=== PATIENT | male | born 1955 | race Caucasian/White ===

== ENCOUNTER 2018-08-20 17:34 | Inpatient (IN) | payer MEDICARE, MEDICAID ==
[~2018-08-20] VITALS: Ht 188 cm; Wt 122.2 kg
--- NOTE | 2018-08-20 17:52 | NUR ---
THIS IS A 62 YEAR OLD MALE WHO WAS BIB BY AMBULANCE DUE TO CP AND SOB. PT STATES PAIN IS 6/10. SATS ON RA 96%, OXYGEN ON AT 2LNC. PT HAS HX OF DM2. PLACED ON APPLICATION SUPPORT CONSULTANT, TACY AT 99-105, SP02 91% at 3LNC, CYCLE VS. MD AT BS
[2018-08-20] MEDS ORDERED: SODIUM CHLORIDE FLUSH 10ML SYR IVF ONE (18:00)
[2018-08-20] MEDS ORDERED: MORPHINE SULFATE 4 MG/ML, 1ML IVPush PRN (18:00)
[2018-08-20] MEDS ORDERED: DM med BC (18:10)
--- NOTE | 2018-08-20 18:11 | NUR ---
Report from Blade RN. Pt resting in bed, frequent productive cough. Pt c/o 07/23 R rib pain. Pt states "Oh I forgot I've had diarrhea for the last 3-4 days too." Pt placed in special contact isolation and Dr. Sinclair notified.
[2018-08-20] MEDS ORDERED: MORPHINE SULFATE 4 MG/ML, 1ML ONE (18:19)
[2018-08-20] MEDS: PIPERACILLIN/TAZO/PMX 3.375GM 50 ML IV ONE ×2 (18:20→19:20)
--- NOTE | 2018-08-20 18:25 | NUR ---
Pt medicated per MAR, provided urinal to void per request. Pt denies other needs.
[2018-08-20 18:30] LABS: MEAN CORPUSCULAR HEMOGLOBIN 31.3 pg (27.5-34.5); MEAN CORPUSCULAR HGB CONC 33.2 g/dL (33.2-36.2); MEAN CORPUSCULAR VOLUME 94.2 fL (81-97); MEAN PLATELET VOLUME 9.1 fL (7.4-10.4); PLATELET COUNT 196 x10^3/uL (130-400); RED BLOOD COUNT 4.01 x10^6/uL (4.38-5.82); RED CELL DISTRIBUTION WIDTH 14.7 % (9.4-14.8)
[2018-08-20] MEDS ORDERED: SODIUM CHLORIDE 0.9% 1,000ML IVBOLUS ONE (18:30)
[2018-08-20 18:36] LABS: ALBUMIN 2.7 g/dL (3.4-5.0); ANION GAP 14 mmol/L (5-15); CHLORIDE 98 mmol/L (98-107); CREATININE 1.91 mg/dL (0.7-1.3)
[2018-08-20 18:41] LABS: TROPONIN I < 0.015 ng/mL (0.000-0.045)
--- NOTE | 2018-08-20 18:42 | NUR ---
Pt states pain resolved after medications, denies other needs.
[2018-08-20] MEDS ORDERED: PIPERACILLIN/TAZO/PMX 3.375GM 50 ML ONE (19:10)
[2018-08-20 19:19] LABS: MD YES
[2018-08-20 19:22] LABS: <PLATELET ESTIMATE> ADEQUATE; <RBC MORPHOLOGY> NORMAL; BAND#(MANUAL) 0.16 x10^3/uL; BANDS%(MANUAL) 1 % (0-7); LYMPH#(MANUAL) 0.78 x10^3/uL (1-3.4); LYMPHS% (MANUAL) 5 % (22-44); METAMYELOCYTES# (MANUAL) 0.16 x10^3/uL (0-0); METAMYELOCYTES% (MANUAL) 1 % (0-1); MONOS% (MANUAL) 9 % (2-9); MYELOCYTES# (MANUAL) 0.31 x10^3/uL (0-0); MYELOCYTES% (MANUAL) 2 % (0-0); SEG#(MANUAL) 12.79 x10^3/uL (1.8-6.8); SEGS% (MANUAL) 82 % (42-75); TOXIC GRAN 1+
[2018-08-20 19:23] LABS: LARGE PLATELETS 1+
--- NOTE | 2018-08-20 19:29 | NUR ---
REPORT FROM KALEE DU. ABX RUNNING. PT GIVEN DINNER TRAY. CALL LIGHT IN REACH
[2018-08-20] MEDS ORDERED: hydrALAzine 20 MG/ML, 1ML IVPush PRN (21:30)
[2018-08-20] MEDS ORDERED: ENOXAPARIN 40 MG/0.4 ML SQ SCH (21:30)
[2018-08-20] MEDS ORDERED: ACETAMINOPHEN 325 MG TABLET PO PRN (21:30)
[2018-08-20] MEDS ORDERED: PHARMACY MAY ADJ FOR RENAL FX MC PRN (21:30)
[2018-08-20] MEDS ORDERED: DOCUSATE 100 MG CAPSULE PO PRN (21:30)
[2018-08-20] MEDS ORDERED: LIDODERM 5% PATCH TD PRN (21:30)
[2018-08-20] MEDS ORDERED: TEMAZEPAM 15 MG CAPSULE PO PRN (21:30)
[2018-08-20] MEDS ORDERED: ONDANSETRON ODT 4 MG PO PRN (21:30)
[2018-08-20] MEDS: SODIUM CHLORIDE 0.9% 1,000 ML IV SCH (22:38)
[2018-08-20 23:03] VITALS: BP 95/57
[2018-08-21 01:08] LABS: TROPONIN I < 0.015 ng/mL (0.000-0.045)
[2018-08-21] MEDS: PIPERACILLIN/TAZO/PMX 3.375GM 50 ML IV SCH ×4 (01:13→19:28)
[2018-08-21 01:54] VITALS: BP 89/54
[2018-08-21] MEDS: GUAIFENESIN/DM 200-20MG, 10ML UDC PO PRN ×2 (02:07→11:12)
[2018-08-21 02:10] VITALS: BP 96/60
[2018-08-21 05:50] LABS: ANION GAP 12 mmol/L (5-15); CALCIUM 8.3 mg/dL (8.5-10.1); CHLORIDE 100 mmol/L (98-107)
[2018-08-21] MEDS: SODIUM CHLORIDE 0.9% 1,000 ML IV SCH ×4 (05:53→19:28)
[2018-08-21 05:55] LABS: CREATININE 1.88 mg/dL (0.7-1.3); TROPONIN I < 0.015 ng/mL (0.000-0.045)
[2018-08-21 06:16] LABS: MEAN CORPUSCULAR HEMOGLOBIN 30.5 pg (27.5-34.5); MEAN CORPUSCULAR HGB CONC 32.7 g/dL (33.2-36.2); MEAN CORPUSCULAR VOLUME 93.1 fL (81-97); MEAN PLATELET VOLUME 8.9 fL (7.4-10.4); PLATELET COUNT 152 x10^3/uL (130-400); RED BLOOD COUNT 3.66 x10^6/uL (4.38-5.82); RED CELL DISTRIBUTION WIDTH 14.1 % (9.4-14.8)
[2018-08-21 06:53] LABS: MD YES
[2018-08-21 06:54] LABS: <PLATELET ESTIMATE> ADEQUATE; <RBC MORPHOLOGY> NORMAL; BAND#(MANUAL) 0.47 x10^3/uL; BANDS%(MANUAL) 4 % (0-7); LYMPH#(MANUAL) 0.59 x10^3/uL (1-3.4); LYMPHS% (MANUAL) 5 % (22-44); MONOS#(MANUAL) 0.59 x10^3/uL (0.3-2.7); MONOS% (MANUAL) 5 % (2-9); SEG#(MANUAL) 10.15 x10^3/uL (1.8-6.8); SEGS% (MANUAL) 86 % (42-75)
[2018-08-21 06:55] LABS: CLOSTRIDIUM DIFFICILE ANTIGEN NEGATIVE; CLOSTRIDIUM DIFFICILE TOXIN NEGATIVE (Negative)
[2018-08-21 06:55] LABS: LARGE PLATELETS 1+; TOXIC GRAN 1+
[2018-08-21 07:34] VITALS: BP 96/61
[2018-08-21] MEDS ORDERED: PHARMACY MAY ADJ FOR RENAL FX MC PRN (11:00)
[2018-08-21] MEDS ORDERED: INSULIN LISPRO 100 UNITS/ML, PEN SQ-INSULIN SCH (11:00)
[2018-08-21] MEDS: INSULIN LISPRO 100 UNITS/ML, PEN SQ-INSULIN SCH ×3 (11:06→21:13)
[2018-08-21] MEDS ORDERED: LOSA100T14 PO (11:22)
[2018-08-21] MEDS ORDERED: GLIP10TA13 PO (11:22)
[2018-08-21] MEDS ORDERED: DOXY100C2 PO (11:22)
[2018-08-21] MEDS ORDERED: AMLO-150 PO (11:22)
[2018-08-21 12:43] VITALS: BP 105/66
[2018-08-21 19:59] VITALS: BP 109/70
[2018-08-21] MEDS: ENOXAPARIN 40 MG/0.4 ML SQ SCH (21:14)
[2018-08-22] MEDS: PIPERACILLIN/TAZO/PMX 3.375GM 50 ML IV SCH ×4 (00:53→20:05)
[2018-08-22 01:17] VITALS: BP 101/64
[2018-08-22] MEDS: SODIUM CHLORIDE 0.9% 1,000 ML IV SCH ×2 (04:14→14:17)
[2018-08-22] MEDS: INSULIN LISPRO 100 UNITS/ML, PEN SQ-INSULIN SCH ×4 (08:11→20:35)
[2018-08-22 08:18] VITALS: BP 100/63
[2018-08-22] MEDS ORDERED: LACTULOSE 20 GM/30 ML UDC PO PRN (11:00)
[2018-08-22] MEDS: DOCUSATE 100 MG CAPSULE PO SCH ×2 (14:17→20:30)
[2018-08-22] MEDS: POLYETHYLENE GLYCOL 17 GM PACKET PO SCH (14:17)
[2018-08-22 17:12] VITALS: BP 135/69
[2018-08-22 19:11] VITALS: BP 105/63
[2018-08-22] MEDS: ENOXAPARIN 40 MG/0.4 ML SQ SCH (21:58)
[2018-08-23] MEDS: PIPERACILLIN/TAZO/PMX 3.375GM 50 ML IV SCH ×2 (02:11→08:40)
[2018-08-23 02:23] VITALS: BP 100/59
[2018-08-23 04:56] LABS: BASOPHILS % (AUTO) 0 % (0-1); EOSINOPHILS # (AUTO) 0.07 x10^3/uL (0-0.4); EOSINOPHILS % (AUTO) 1 % (1-7); LYMPHOCYTES # (AUTO) 0.45 x10^3/uL (1-3.4); LYMPHOCYTES % (AUTO) 8 % (22-44); MD NO; MEAN CORPUSCULAR HEMOGLOBIN 30.7 pg (27.5-34.5); MEAN CORPUSCULAR HGB CONC 33.1 g/dL (33.2-36.2); MEAN CORPUSCULAR VOLUME 92.8 fL (81-97); MEAN PLATELET VOLUME 8.1 fL (7.4-10.4); MONOCYTES # (AUTO) 0.63 x10^3/uL (0.2-0.8); MONOCYTES % (AUTO) 11 % (2-9); NEUTROPHILS # (AUTO) 4.61 x10^3/uL (1.8-6.8); NEUTROPHILS % (AUTO) 80 % (42-75); PLATELET COUNT 173 x10^3/uL (130-400); RED BLOOD COUNT 3.46 x10^6/uL (4.38-5.82); RED CELL DISTRIBUTION WIDTH 13.9 % (9.4-14.8)
[2018-08-23 05:00] LABS: ALANINE AMINOTRANSFERASE 22 U/L (12-78); ALBUMIN 1.9 g/dL (3.4-5.0); ANION GAP 8 mmol/L (5-15); CALCIUM 8.2 mg/dL (8.5-10.1); CHLORIDE 104 mmol/L (98-107); CREATININE 0.96 mg/dL (0.7-1.3)
[2018-08-23 05:02] LABS: ALKALINE PHOSPHATASE 155 U/L (45-117); BILIRUBIN,TOTAL 0.8 mg/dL (0.2-1.0); TOTAL PROTEIN 6.6 g/dL (6.4-8.2)
[2018-08-23 05:09] LABS: HEMOGLOBIN A1C 8.8 % (4.2-6.3)
[2018-08-23 07:07] VITALS: BP 109/69
[2018-08-23] MEDS: DOCUSATE 100 MG CAPSULE PO SCH ×2 (08:40→20:28)
[2018-08-23] MEDS: POLYETHYLENE GLYCOL 17 GM PACKET PO SCH (08:40)
[2018-08-23] MEDS: INSULIN LISPRO 100 UNITS/ML, PEN SQ-INSULIN SCH ×4 (08:41→20:28)
[2018-08-23] MEDS ORDERED: OMNIPAQUE 350 MG/ML, 150 ML BOTTLE ONE (08:47)
[2018-08-23] MEDS ORDERED: VANCOMYCIN PER PHARMACY MC PRN (12:30)
[2018-08-23] MEDS ORDERED: PHARMACOKINETIC MONITORING MC PRN (12:30)
[2018-08-23] MEDS ORDERED: PHARMACOKINETIC CONSULTATION MC ONE (12:30)
[2018-08-23 13:00] VITALS: BP 101/62
[2018-08-23] MEDS: VANCOMYCIN 2,200 MG in SODIUM CHLORIDE 0.9% 500 ML IV SCH (13:45)
[2018-08-23 18:56] VITALS: BP 119/75
[2018-08-23] MEDS: ENOXAPARIN 40 MG/0.4 ML SQ SCH (20:28)
[2018-08-24 02:01] VITALS: BP 116/62
[2018-08-24 05:25] LABS: ANION GAP 7 mmol/L (5-15); CALCIUM 8.6 mg/dL (8.5-10.1); CHLORIDE 108 mmol/L (98-107)
[2018-08-24 05:29] LABS: ALANINE AMINOTRANSFERASE 24 U/L (12-78); ALKALINE PHOSPHATASE 184 U/L (45-117); BILIRUBIN,TOTAL 0.7 mg/dL (0.2-1.0); CREATININE 0.74 mg/dL (0.7-1.3); TOTAL PROTEIN 6.7 g/dL (6.4-8.2)
[2018-08-24] MEDS: VANCOMYCIN 2,200 MG in SODIUM CHLORIDE 0.9% 500 ML IV SCH (06:37)
[2018-08-24 07:56] VITALS: BP_SYST 125; BP_SYST 147; BP_DIAS 71; BP_DIAS 73
[2018-08-24] MEDS: INSULIN LISPRO 100 UNITS/ML, PEN SQ-INSULIN SCH ×4 (08:20→20:32)
[2018-08-24] MEDS: POLYETHYLENE GLYCOL 17 GM PACKET PO SCH (08:22)
[2018-08-24] MEDS: DOCUSATE 100 MG CAPSULE PO SCH ×2 (08:22→20:25)
[2018-08-24 12:30] VITALS: BP 127/74
[2018-08-24 19:01] VITALS: BP 152/82
[2018-08-24] MEDS: ENOXAPARIN 40 MG/0.4 ML SQ SCH (20:25)
[2018-08-24] MEDS ORDERED: INSULIN GLARGINE 100 UNITS/ML, PEN SQ-INSULIN SCH (21:00)
[2018-08-25] MEDS: VANCOMYCIN 2,200 MG in SODIUM CHLORIDE 0.9% 500 ML IV SCH (00:26)
[2018-08-25 01:14] VITALS: BP 142/75
[2018-08-25 05:38] LABS: BASOPHILS # (AUTO) 0.02 x10^3/uL (0-0.1); BASOPHILS % (AUTO) 0 % (0-1); EOSINOPHILS # (AUTO) 0.16 x10^3/uL (0-0.4); EOSINOPHILS % (AUTO) 3 % (1-7); LYMPHOCYTES # (AUTO) 0.59 x10^3/uL (1-3.4); LYMPHOCYTES % (AUTO) 10 % (22-44); MD NO; MEAN CORPUSCULAR HEMOGLOBIN 31.3 pg (27.5-34.5); MEAN CORPUSCULAR VOLUME 94.9 fL (81-97); MEAN PLATELET VOLUME 7.9 fL (7.4-10.4); MONOCYTES # (AUTO) 0.41 x10^3/uL (0.2-0.8); MONOCYTES % (AUTO) 7 % (2-9); NEUTROPHILS # (AUTO) 5.05 x10^3/uL (1.8-6.8); NEUTROPHILS % (AUTO) 81 % (42-75); PLATELET COUNT 208 x10^3/uL (130-400); RED BLOOD COUNT 3.57 x10^6/uL (4.38-5.82); RED CELL DISTRIBUTION WIDTH 14.1 % (9.4-14.8)
[2018-08-25 06:27] VITALS: BP 125/74
[2018-08-25] MEDS: INSULIN LISPRO 100 UNITS/ML, PEN SQ-INSULIN SCH (07:19)
[2018-08-25] MEDS ORDERED: INSULIN GLARGINE 100 UNITS/ML, PEN SQ-INSULIN SCH (09:00)
[2018-08-25] MEDS ORDERED: AMOXICILLIN/CLAV 875-125MG TABLET PO SCH (09:00)
[2018-08-25] MEDS: POLYETHYLENE GLYCOL 17 GM PACKET PO SCH (09:00)
[2018-08-25] MEDS ORDERED: LOSARTAN 50MG TABLET PO SCH (09:00)
[2018-08-25] MEDS: DOCUSATE 100 MG CAPSULE PO SCH (09:00)
[2018-08-25] MEDS ORDERED: GUAI-103 PO (10:27)
[2018-08-25] MEDS ORDERED: INSU100I11 SQ-INSULIN (10:27)
[2018-08-25] MEDS ORDERED: AMOX1TAB12 PO (10:27)
== END 2018-08-25 12:05 | disposition home or self-care (01) | DRG 871 ==
LOC: ED 19:32 → EDIP 19:35 → 3NE 20:53 → DCLOUNGE 08-25 11:50
PROVIDERS: ADMIT Family Medicine; ATTEND Family Medicine
DX: A40.3 Sepsis due to Streptococcus pneumoniae (principal); J15.9 Unspecified bacterial pneumonia; N17.0 Acute kidney failure with tubular necrosis; R65.20 Severe sepsis without septic shock; J96.01 Acute respiratory failure with hypoxia; J15.4 Pneumonia due to other streptococci; E87.1 Hypo-osmolality and hyponatremia; E87.2 Acidosis; J90 Pleural effusion, not elsewhere classified; K76.6 Portal hypertension; E11.21 Type 2 diabetes mellitus with diabetic nephropathy; E11.51 Type 2 diabetes mellitus with diabetic peripheral angiopathy without gangrene; E11.65 Type 2 diabetes mellitus with hyperglycemia; E66.9 Obesity, unspecified; E78.5 Hyperlipidemia, unspecified; I08.2 Rheumatic disorders of both aortic and tricuspid valves; I10 Essential (primary) hypertension; Z68.34 Body mass index [BMI] 34.0-34.9, adult; Z59.0 Homelessness; Z83.3 Family history of diabetes mellitus; Z87.891 Personal history of nicotine dependence
CPT/HCPCS: 36415; 71045; 71250; 71275; 76700; 78582; 80048; 80053; 80074; 82040; 82962; 83036; 83605; 83880; 84484; 85025; 85379; 87040; 87070; 87077; 87181; 87184; 87205; 87324; 93005; 93306; 93922; 93970; 96361; 96365; G0378; J1650; J2543; J3370; Q9967; A9540; A9558; C9898; J1815; J2270; J7030; J7040